=== PATIENT | male | born 1945 | race Caucasian/White ===

== ENCOUNTER 2021-08-02 11:49 | Outpatient (CLI) | payer MEDICARE ==
[2021-08-02 22:27] LABS: SARS-CoV-2 PCR by NAA Not Detected (NotDetected)
== END 2021-08-02 11:50 | disposition home or self-care (01) ==
LOC: CSHLAB 11:49
PROVIDERS: ATTEND Surgery
DX: Z20.822 Contact with and (suspected) exposure to COVID-19 (principal)
CPT/HCPCS: U0003; U0005

== ENCOUNTER 2021-08-04 05:47 | Day surgery (SDC) | payer MEDICARE ==
[2021-07-28 12:35] VITALS: BMI 29.0
[2021-08-04] MEDS ORDERED: Lidocaine 1% MPF 2 ML VIAL ONE (06:23)
[2021-08-04] MEDS ORDERED: Fentanyl 100 MCG/2 ML VIAL ONE (06:42)
[2021-08-04] MEDS ORDERED: PROPOFOL 20 ML ONE (06:42)
[2021-08-04] MEDS ORDERED: EPINEPHrine 1 MG/ML AMP ONE (06:46)
[2021-08-04] MEDS ORDERED: Bupivacaine 0.25% HCL 30 ML VIAL ONE (06:46)
[2021-08-04] MEDS ORDERED: PHENYLEPHRINE-NS 100 MCG/ML 10 ML SYRINGE ONE (07:20)
[2021-08-04] MEDS ORDERED: Glycopyrrolate 0.2 MG/ML 5 ML SYRINGE ONE (07:30)
[2021-08-04] MEDS ORDERED: HYDROcodone/Acetaminophen 5/325 mg Tablet PO PRN (08:19)
[2021-08-04] MEDS ORDERED: Acetaminophen 325 MG TAB PO PRN (08:19)
== END 2021-08-04 08:35 | disposition home or self-care (01) ==
LOC: CSHSDC 05:47
PROVIDERS: ATTEND Surgery
DX: C32.9 Malignant neoplasm of larynx, unspecified (principal); J44.9 Chronic obstructive pulmonary disease, unspecified; Z87.891 Personal history of nicotine dependence
CPT/HCPCS: 36561; 76000; C1788; J0171; J0690; J1642; J2704; J3010; S0020